=== PATIENT | female | born 1960 | race African-American/Black ===

== ENCOUNTER 2019-05-31 15:44 | Emergency (ER) | payer MEDICAID ==
[~2019-05-31] VITALS: Ht 162.6 cm; Wt 72.0 kg
[2019-05-31] MEDS ORDERED: PREDNISONE 20MG TABLET PO STA (15:57)
[2019-05-31] MEDS ORDERED: IPRATROPIUM BROMIDE (0.02%) 0.5MG/2.5ML NEB HHN STA (15:57)
[2019-05-31] MEDS ORDERED: ALBUTEROL (0.083%) 2.5MG/3ML NEB HHN STA (15:57)
[2019-05-31] MEDS ORDERED: ENALAPRIL 5MG TABLET PO SCH (16:15)
[2019-05-31 19:00] VITALS: BP 126/84
== END 2019-05-31 19:50 | disposition home or self-care (01) ==
LOC: ER 15:44
DX: J45.901 Unspecified asthma with (acute) exacerbation (principal); I10 Essential (primary) hypertension; R51 Headache; Z91.14 Patient's other noncompliance with medication regimen; Z98.890 Other specified postprocedural states; Z88.0 Allergy status to penicillin; Z91.040 Latex allergy status
CPT/HCPCS: 71045; 94640; 99285; J7512; J7611; Z7610

== ENCOUNTER 2019-06-30 11:17 | Emergency (ER) | payer SELFPAY ==
[~2019-06-30] VITALS: Ht 149.9 cm; Wt 73.0 kg
[2019-06-30] MEDS ORDERED: IPRATROPIUM BROMIDE (0.02%) 0.5MG/2.5ML NEB HHN STA (12:09)
[2019-06-30] MEDS ORDERED: ALBUTEROL (0.083%) 2.5MG/3ML NEB HHN STA (12:09)
[2019-06-30] MEDS ORDERED: PREDNISONE 20MG TABLET PO ONE (12:30)
[2019-06-30 14:25] VITALS: BP 135/85
== END 2019-06-30 14:28 | disposition home or self-care (01) ==
LOC: ER 11:17
DX: J45.901 Unspecified asthma with (acute) exacerbation (principal); R06.03 Acute respiratory distress; F17.200 Nicotine dependence, unspecified, uncomplicated; R06.02 Shortness of breath; Z88.0 Allergy status to penicillin; Z98.890 Other specified postprocedural states; Z91.040 Latex allergy status
CPT/HCPCS: 71045; 94644; 99285; J7512; J7611; Z7610

== ENCOUNTER 2019-07-15 19:32 | Inpatient (IN) | payer OTHER, MEDICAID ==
[~2019-07-15] VITALS: Ht 149.9 cm; Wt 76.2 kg
[2019-07-15] MEDS ORDERED: ONDANSETRON HCL 4MG/2ML INJ IV STA (20:21)
[2019-07-15] MEDS ORDERED: SODIUM CHLORIDE 0.9% 1,000 ML IV ONE (20:21)
[2019-07-15] MEDS ORDERED: ASPIRIN 81MG TABLET PO ONE (20:30)
[2019-07-15] MEDS ORDERED: ALBUTEROL (0.083%) 2.5MG/3ML NEB HHN STA (20:53)
[2019-07-15] MEDS ORDERED: IPRATROPIUM BROMIDE (0.02%) 0.5MG/2.5ML NEB HHN STA (20:53)
[2019-07-15] MEDS ORDERED: METHYLPREDNISOLONE SOD SUCC 125 MG/2 ML VIAL IV STA (20:53)
[2019-07-15 21:09] LABS: BASOPHILS % 1.1 % (0.0-2.0); EOSINOPHILS % 9.8 % (0.0-5.0); HEMATOCRIT. 47.5 % (36.0-48.0); HEMOGLOBIN. 15.8 g/dL (12.0-16.0); LYMPHOCYTES % 15.5 % (20.0-50.0); MEAN CORPUSCULAR HEMOGLOBIN 28.4 pg (28.0-32.0); MEAN CORPUSCULAR VOLUME 85.3 fL (81.0-99.0); MEAN PLATELET VOLUME 8.6 fl (7.4-10.4); MONOCYTES % 8.3 % (2.0-8.0); NEUTROPHILS % 65.3 % (40.0-76.0); PLATELET 124 x1000/uL (130-400); RED BLOOD CELL COUNT 5.57 mill/uL (4.2-5.4); RED CELL DISTRIBUTION WIDTH 14.2 % (11.6-14.6)
[2019-07-15 21:15] LABS: CHLORIDE 105 mEq/L (98-107)
[2019-07-15 22:16] LABS: CLARITY URINE CLEAR (CLEAR); COLOR URINE YELLOW (YELLOW); KETONES URINE NEGATIVE (NEGATIVE); LEUKOCYTE ESTERASE URINE NEGATIVE (NEGATIVE); NITRITE URINE NEGATIVE (NEGATIVE); OCCULT BLOOD URINE NEGATIVE (NEGATIVE); PH URINE 5.5 (4.5-8.0); PROTEIN URINE NEGATIVE (NEGATIVE); SPECIFIC GRAVITY URINE 1.002 (1.005-1.030); UROBILINOGEN URINE 0.2 E.U./dL (0.2-1.0)
[2019-07-16] VITALS (13 sets, daily range): BP systolic 105–137; BP diastolic 70–94
[2019-07-16] MEDS ORDERED: DOCUSATE SODIUM 100MG CAPSULE PO PRN (01:30)
[2019-07-16] MEDS ORDERED: ONDANSETRON HCL 4MG/2ML INJ IV PRN (01:30)
[2019-07-16] MEDS ORDERED: MAGNESIUM/ALUMINUM HYDROXIDE/SIMETHICONE 30ML UDC PO PRN (01:30)
[2019-07-16] MEDS ORDERED: CLONIDINE 0.1MG TABLET PO PRN (01:30)
[2019-07-16] MEDS ORDERED: IPRATROPIUM/ALBUTEROL 0.5-3(2.5)MG/3ML NEB NEB PRN (01:30)
[2019-07-16] MEDS: GUAIFENESIN 200MG/10ML SUGAR FREE UDC PO PRN ×3 (01:45→17:13)
[2019-07-16] MEDS: IPRATROPIUM/ALBUTEROL 0.5-3(2.5)MG/3ML NEB NEB SCH ×4 (02:19→19:47)
[2019-07-16] MEDS ORDERED: KCL 10MEQ/50ML PREMIX 50 ML IV NR (02:30)
[2019-07-16] MEDS: LEVOFLOXACIN 500MG PREMIX 100 ML IV SCH (03:44)
[2019-07-16] MEDS: METHYLPREDNISOLONE SOD SUCC 125 MG/2 ML VIAL IV SCH ×3 (05:11→17:13)
[2019-07-16] MEDS: ASPIRIN 81MG EC TABLET PO SCH (08:47)
[2019-07-16] MEDS: AMLODIPINE 10MG TABLET PO SCH (08:47)
[2019-07-16] MEDS: ENOXAPARIN 30MG/0.3ML SYR SUBCUT SCH ×2 (08:48→21:01)
[2019-07-16] MEDS: ACETAMINOPHEN 325MG TABLET PO PRN (13:39)
[2019-07-16 17:10] LABS: CHLORIDE 106 mEq/L (98-107)
[2019-07-16] MEDS: BLOOD SUGAR DIAGNOSTIC STRIP TEST SCH ×2 (17:30→20:55)
[2019-07-16] MEDS ORDERED: DEXTROSE 50% WATER 50ML SYRINGE IV PRN (17:30)
[2019-07-16] MEDS: INSULIN LISPRO 100 UNITS/ML SUBCUT SCH ×2 (18:00→21:02)
[2019-07-17] VITALS (18 sets, daily range): BP systolic 111–146; BP diastolic 70–99
[2019-07-17 01:00] LABS: CREATINE KINASE MB FRACTION 6.7 ng/mL (0.5-3.6)
[2019-07-17] MEDS: METHYLPREDNISOLONE SOD SUCC 125 MG/2 ML VIAL IV SCH ×3 (01:07→14:41)
[2019-07-17] MEDS: IPRATROPIUM/ALBUTEROL 0.5-3(2.5)MG/3ML NEB NEB SCH ×3 (02:29→20:26)
[2019-07-17] MEDS: LEVOFLOXACIN 500MG PREMIX 100 ML IV SCH (04:34)
[2019-07-17 07:08] LABS: HEMATOCRIT. 46.7 % (36.0-48.0); HEMOGLOBIN. 15.6 g/dL (12.0-16.0); MEAN CORPUSCULAR HEMOGLOBIN 28.6 pg (28.0-32.0); MEAN CORPUSCULAR VOLUME 85.8 fL (81.0-99.0); MEAN PLATELET VOLUME 9.4 fl (7.4-10.4); PLATELET 159 x1000/uL (130-400); RED BLOOD CELL COUNT 5.44 mill/uL (4.2-5.4); RED CELL DISTRIBUTION WIDTH 14.4 % (11.6-14.6)
[2019-07-17 07:24] LABS: CHLORIDE 105 mEq/L (98-107)
[2019-07-17 07:50] LABS: LDL CHOLESTEROL 111 mg/dL (5-100)
[2019-07-17 07:51] LABS: CREATINE KINASE 214 IU/L (26-192)
[2019-07-17 07:52] LABS: HDL CHOLESTEROL 80 mg/dL (40-59)
[2019-07-17 07:54] LABS: CREATINE KINASE MB FRACTION 5.6 ng/mL (0.5-3.6)
[2019-07-17] MEDS: BLOOD SUGAR DIAGNOSTIC STRIP TEST SCH ×4 (08:22→21:24)
[2019-07-17] MEDS: AMLODIPINE 10MG TABLET PO SCH (08:40)
[2019-07-17] MEDS: ASPIRIN 81MG EC TABLET PO SCH (08:40)
[2019-07-17] MEDS: ENOXAPARIN 30MG/0.3ML SYR SUBCUT SCH ×2 (08:41→21:00)
[2019-07-17] MEDS: INSULIN LISPRO 100 UNITS/ML SUBCUT SCH ×4 (08:42→21:38)
[2019-07-17] MEDS: ACETAMINOPHEN 325MG TABLET PO PRN (08:48)
[2019-07-17 09:08] LABS: BG BASE EXCESS 1.7 mmol/L (-2.0-2.0); BG DEOXYHEMOGLOBIN 5.5 % (0.0-5.0); BG FRACTION INSPIRED OXYGEN 21; BG HCO3 ACT 26.5 mmol/L (22.0-26.0); BG METHEMOGLOBIN 0.2 % (0.0-1.5); BG OXYGEN SATURATION 94.5 % (92.0-98.5); BG OXYHEMOGLOBIN 94.3 % (94.0-97.0); BG PCO2 42.1 mmHg (35.0-45.0); BG PH 7.417 (7.350-7.450); BG PO2 70.5 mmHg (75.0-100.0); BG SAMPLE SITE RIGHT RADIAL; BG TOTAL HEMOGLOBIN 16.9 g/dL (12.0-18.0); BG VENT MODE ROOM AIR
[2019-07-17] MEDS ORDERED: CLOPIDOGREL 75MG TABLET PO SCH (09:15)
[2019-07-17 09:26] LABS: PLATELET ESTIMATE NORMAL
[2019-07-17 11:18] LABS: T4 FREE 0.82 ng/dL (0.76-1.46)
[2019-07-17] MEDS ORDERED: LIDOCAINE HCL 1% 20ML VIAL (Pyxis) INJ ONE (11:26)
[2019-07-17] MEDS ORDERED: IODIXANOL 320MG/ML 100 ML BOTTLE IV ONE (11:27)
[2019-07-17] MEDS ORDERED: DILTIAZEM HCL 5MG/ML 5ML VIAL IV ONE (11:55)
[2019-07-17] MEDS ORDERED: ACETAMINOPHEN 325MG TABLET PO PRN (12:15)
[2019-07-17] MEDS ORDERED: ATROPINE SULFATE 1MG/10ML SYR IV PRN (12:15)
[2019-07-17] MEDS ORDERED: BENZONATATE 100MG CAPSULE PO PRN (14:45)
[2019-07-17] MEDS: HYDROCODONE/ACETAMINOPHEN 5/325MG TABLET PO PRN ×2 (15:49→21:31)
[2019-07-17 15:54] LABS: CREATINE KINASE MB FRACTION 4.8 ng/mL (0.5-3.6)
[2019-07-17] MEDS ORDERED: MONTELUKAST SODIUM 10MG TABLET PO SCH (17:00)
[2019-07-17] MEDS: GUAIFENESIN 200MG/10ML SUGAR FREE UDC PO PRN (19:38)
[2019-07-17] MEDS: METHYLPREDNISOLONE SOD SUCC 40 MG/ML VIAL IV SCH (21:16)
[2019-07-17] MEDS: FAMOTIDINE 20MG TABLET PO SCH (21:17)
[2019-07-18] VITALS (13 sets, daily range): BP systolic 124–163; BP diastolic 58–113
[2019-07-18] MEDS: IPRATROPIUM/ALBUTEROL 0.5-3(2.5)MG/3ML NEB NEB SCH ×3 (01:12→14:34)
[2019-07-18] MEDS: LEVOFLOXACIN 500MG PREMIX 100 ML IV SCH (04:44)
[2019-07-18] MEDS: METHYLPREDNISOLONE SOD SUCC 40 MG/ML VIAL IV SCH ×2 (04:44→12:00)
[2019-07-18] MEDS: BLOOD SUGAR DIAGNOSTIC STRIP TEST SCH ×2 (06:12→12:07)
[2019-07-18] MEDS: GUAIFENESIN 200MG/10ML SUGAR FREE UDC PO PRN (06:19)
[2019-07-18 06:37] LABS: METHADONE URINE SCREEN NEGATIVE (NEGATIVE); OPIATES URINE SCREEN PRESUMTIVE POSITIVE (NEGATIVE); PHENCYCLIDINE URINE SCREEN NEGATIVE (NEGATIVE)
[2019-07-18 06:38] LABS: *AMPHETAMINES SCREEN URINE NEGATIVE (NEGATIVE); *BARBITURATES SCREEN URINE NEGATIVE (NEGATIVE); *BENZODIAZEPINES SCREEN URINE NEGATIVE (NEGATIVE); *COCAINE SCREEN URINE NEGATIVE (NEGATIVE); CANNABINOID URINE SCREEN NEGATIVE (NEGATIVE)
[2019-07-18 06:41] LABS: HEMATOCRIT. 45.7 % (36.0-48.0); HEMOGLOBIN. 15.1 g/dL (12.0-16.0); MEAN CORPUSCULAR HEMOGLOBIN 28.2 pg (28.0-32.0); MEAN CORPUSCULAR VOLUME 85.7 fL (81.0-99.0); PLATELET 151 x1000/uL (130-400); RED BLOOD CELL COUNT 5.33 mill/uL (4.2-5.4); RED CELL DISTRIBUTION WIDTH 14.2 % (11.6-14.6)
[2019-07-18 06:50] LABS: CHLORIDE 104 mEq/L (98-107)
[2019-07-18] MEDS: AMLODIPINE 10MG TABLET PO SCH (08:05)
[2019-07-18] MEDS: ENOXAPARIN 30MG/0.3ML SYR SUBCUT SCH (08:07)
[2019-07-18] MEDS: ACETAMINOPHEN 325MG TABLET PO PRN (08:16)
[2019-07-18] MEDS: INSULIN LISPRO 100 UNITS/ML SUBCUT SCH ×2 (08:25→12:08)
[2019-07-18] MEDS ORDERED: ASPIRIN 81MG TABLET PO SCH (09:00)
[2019-07-18] MEDS: FAMOTIDINE 20MG TABLET PO SCH (09:00)
[2019-07-18] MEDS ORDERED: LORATADINE 10MG TABLET PO SCH (09:00)
[2019-07-18 10:51] LABS: PLATELET ESTIMATE NORMAL
== END 2019-07-18 15:14 | disposition home or self-care (01) | DRG 133 ==
LOC: ER 19:32 → 5EST 22:25 → EDBEDREQ 22:33 → EDBEDREQSVC 22:33 → EDBEDREQTM 22:33 → ENRESERV 22:38 → 3WST 07-17 13:43
PROVIDERS: ADMIT Hospitalist; ATTEND Hospitalist
PROC: 4A023N7 Measurement of Cardiac Sampling and Pressure, Left Heart, Percutaneous Approach (ICD-10-PCS; principal; 2019-07-17)
PROC: B2111ZZ Fluoroscopy of Multiple Coronary Arteries using Low Osmolar Contrast (ICD-10-PCS; 2019-07-17)
DX: J96.00 Acute respiratory failure, unspecified whether with hypoxia or hypercapnia (principal); J18.9 Pneumonia, unspecified organism; D72.1 Eosinophilia; J44.0 Chronic obstructive pulmonary disease with (acute) lower respiratory infection; J44.1 Chronic obstructive pulmonary disease with (acute) exacerbation; J45.901 Unspecified asthma with (acute) exacerbation; E11.9 Type 2 diabetes mellitus without complications; E78.5 Hyperlipidemia, unspecified; F41.9 Anxiety disorder, unspecified; I10 Essential (primary) hypertension; E87.6 Hypokalemia; R07.89 Other chest pain; E66.9 Obesity, unspecified; Z68.33 Body mass index [BMI] 33.0-33.9, adult; Z79.899 Other long term (current) drug therapy; Z88.0 Allergy status to penicillin; Z91.040 Latex allergy status; Z82.49 Family history of ischemic heart disease and other diseases of the circulatory system
CPT/HCPCS: 36415; 36600; 71045; 78582; 80048; 80061; 80305; 81003; 82375; 82550; 82553; 82805; 82962; 83036; 83880; 84439; 84443; 84484; 85379; 87804; 93005; 93306; 93458; 93970; 94640; 94644; 96361; 96374; 96375; 99285; A9558; C1760; C1769; C1887; C1893; J1644; J1650; J1815; J1956; J2405; J2920; J2930; J3480; J3490; J7030; J7611; J7620; Q9967